=== PATIENT | male | born 1965 | race African-American/Black ===

== ENCOUNTER 2021-01-31 09:23 | Outpatient (CLI) | payer OTHER, SELFPAY ==
[2021-01-31] VITALS (33 sets, daily range): BP systolic 88–144; BP diastolic 58–102; PULSE 59–99; RESP 9–26; O2SAT 95–100
--- NOTE | ~2021-01-31 | CT_ITS ---
EXAMINATION: CT biopsy bone superficial ORDER COMPLETED DATE: 01/31/2021 12:52 INDICATION: Metastatic renal cell carcinoma TECHNIQUE: A time-out was performed to verify the patient's name, date of , and procedure to b e performed. The procedure including the risks, benefits, and alternatives was discussed with the pat ient. Risks discussed included bleeding and infection. The patient understood the risks and agreed to proceed. The skin overlying the left posterior iliac spine was prepped and draped in usual sterile f ashion. Anesthetic was administered with 1% lidocaine subcutaneously. Systemic analgesia was provided with 100 mcg fentanyl IV. An 8 gauge needle was inserted into the subtle lytic lesion at the left il ium with CT guidance. A core bone marrow biopsy was obtained. The 8 gauge needle needle was reinserte d into the lesion of concern with CT guidance and a second core biopsy was obtained. There were no im mediate complications. The dose-length product was 407.61 mGy-cm. FINDINGS: CT images demonstrate a subtle lucent lesion in the left posterior iliac spine. Subsequent images demonstrate biopsy needles advanced into the lucent lesion. IMPRESSION: 1. Successful fluoro-guided bone marrow core biopsy of a subtle lucent lesion in the left posterior i liac spine. Reviewed, dictated and finalized at location A. 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 Successful fluoro-guided bone marrow core biopsy of a subtle lucent lesion i n the left posterior iliac spine.
[2021-01-31 10:31] LABS: Mean Platelet Volume 10.2 fl (7.4-10.4); Platelet Count Result 258 k/mm3 (150-375)
[2021-01-31 10:46] LABS: Prothrombin Time 12.7 Seconds (11.1-14.7)
--- NOTE | 2021-01-31 14:02 | SUR.PHASEII ---
Addendum entered by Ruben Hernandez RN 01/31/21 14:12: . Original Note: 1130 Dressing to the ower back is dry and intact, no signs of bleeding 1200 No signs of bleeding to the dressing on the lower back. 1230 Dressing to the lower back dry /intact 1300 Dressing to the lower back dry/intact 1400 Dressing to the lower back dry/intact, no signs of bleeding.
--- NOTE | 2021-01-31 16:21 | PC.NURSE ---
i/v d/c tip intact. wound care instructions given to patient along with a print out given to guard to give to alf nurse.
--- NOTE | 2021-01-31 16:38 | PC.NURSE ---
patient escorted by guards x2 in wheelchair vehicle. dressing d/c/i with mild drainage noted
== END 2021-01-31 16:41 | disposition home or self-care (01) ==
PROVIDERS: Radiology Diagnostic Radiology
PROC: (CPT 77012; principal; 2021-01-31 11:00)
DX: C79.00 Secondary malignant neoplasm of unspecified kidney and renal pelvis (principal)
CPT/HCPCS: 20220; 36415; 77012; 85049; 85610; 88307; 88311; 88313; 88342

== ENCOUNTER 2021-04-03 01:28 | Outpatient (CLI) | payer OTHER, SELFPAY ==
[2021-03-20 11:17] VITALS: BMI 33.3
--- NOTE | 2021-03-20 11:20 | PC.NURSE ---
Addendum entered by Kyung Morgan RN 03/28/21 11:05: TO ARRIVE AT 0830 ON 04/03/21 FOR PROCEDURE AT 1030. WILL BE REQUIRED TO STAY 2-6 HOURS AFTER PROCEDURE. Original Note: Report to the Outpatient Waiting Room, VIA 'S ENTRANCE located off [facility], at time 0830 on date 03/27/21. OR Time: 1030. - You and your visitor will be asked a series of questions to screen for COVID 19 for your protection. - A mask is required within the hospital. - Only one visitor is allowed at this time. Patient visitors will be guided where to wait when not with patient. Preoperative COVID Testing Requirements: EITHER BRING RECORD OF COVID VACCINATION OR COVID TEST RESULT No COVID Test needed if: (proof is required; if not received patient will have Rapid Test prior to entry) - Patient has received COVID Vaccine at least 14 days prior to procedure date or - Patient has positive COVID test result within last 90 days of surgery date. COVID Test needed if above criteria is not met If not COVID vaccinated a COVID test must be conducted within 72 hours of surgery and patient is asked to isolate self from time of testing until procedure. You will go to the [facility] for your COVID testing. The [facility] site is located at the corner of [address] [facility]. You will only be called if COVID results are positive and your surgeon may reschedule your elective surgery date. - No food/DRINK from midnight until time of surgery Take the following medications with a SIP of water the morning of surgery: NONE Medications to discontinue per physician: N/A Date to take last dose: N/A Please no make-up, nail romansh, hairspray, perfume, deodorant, or body powder the day of surgery. No jewelry (including any body piercings) or valuables the day of surgery, leave them at home. Please take a shower or bath the night before, or the morning of, surgery with an antibacterial soap. Wear comfortable, loose fitting clothing. - Jewelry must be removed prior to entering the operating room. Rings and piercings that are not removed may be cut off. - The hospital will not accept responsibility for valuables. - Please leave all valuables, including medications, at home the day of surgery. If you are going home after surgery, a licensed fire truck driver must drive you home. - NO public transportation without another adult. - We recommend that an adult stay with you for 24 hours following discharge. - We also recommend that you do not drive, make important decision, drink alcoholic beverages, or take any drugs that were not prescribed by your health care provider for at least 24 hours after your discharge time. Follow any additional instructions given to you from your surgeon. Instructions FAXED to [facility] and asked if any additional questions and then verbalized understanding. Patient advised to call surgeon office or pre surgery nurse liaison [phone] if any additional questions.
[2021-04-03] VITALS (9 sets, daily range): BP systolic 118–149; BP diastolic 76–97; PULSE 70–95; RESP 16–20; TEMP 36.7; O2SAT 96–98
--- NOTE | ~2021-04-03 | US_ITS ---
EXAMINATION: US biopsy renal DATE: 04/03/2021 10:10 INDICATION: Renal mass TECHNIQUE: The procedure including the risks, benefits, and alternatives was discussed with the patie nt. Risks discussed included bleeding and infection. The patient understood the risks and agreed to p roceed. A timeout was performed to verify the patient's name, date of , and procedure to be p erformed. The skin overlying the lower pole of the right kidney was prepped and draped in usual ster ile fashion. Anesthetic was administered with 1% lidocaine subcutaneously. A 16-gauge guide needle w as advanced through the abdominal wall with ultrasound guidance to the periphery of the mass of inter est. The needle was removed and 18 gauge core biopsy needle was then passed through the guide needle to obtain 3 core biopsy specimens of the mass under continuous sonographic guidance. The guide needle was then removed. The entry site was cleaned and dressed. There were no immediate complications. FINDINGS: Ultrasound images demonstrate the biopsy needle advanced into an 8.8 cm solid mass at the l ower pole of the right kidney. IMPRESSION: 1. Ultrasound-guided biopsy core needle biopsy of an 8.8 cm mass at the lower pole of the right kidn ey. Reviewed, dictated and finalized at location A. 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 Ultrasound-guided biopsy core needle biopsy of an 8.8 cm mass at the lower pole of the right kidney.
[2021-04-03 08:55] LABS: Mean Platelet Volume 10.2 fl (7.4-10.4); Platelet Count Result 262 k/mm3 (150-375)
[2021-04-03 09:06] LABS: Prothrombin Time 12.9 Seconds (11.1-14.7)
--- NOTE | 2021-04-03 13:41 | SUR.PHASEII ---
[address] contreras on patient condition, he is ok for patient to be discharged and to eat a regular diet. patient vital signs stable on room air, having no pain at biopsy site.
== END 2021-04-03 14:32 | disposition home or self-care (01) ==
PROVIDERS: Radiology Diagnostic Radiology; Visit Provider Radiology Diagnostic Radiology
PROC: (CPT 76942; principal; 2021-04-03 10:30)
DX: C64.1 Malignant neoplasm of right kidney, except renal pelvis (principal); N28.89 Other specified disorders of kidney and ureter
CPT/HCPCS: 36415; 50200; 76942; 85049; 85610; 88305; 88342